=== PATIENT | male | born 1995 | race Caucasian/White ===

== ENCOUNTER → 2019-06-13 | Outpatient (CLI) | payer OTHER, MEDICAID ==
[~2019-06-13] MED LIST: CLOZ100T14 PO; FLUO-201 PO; LAMOT150PT GT; LEVO25TA61 PO; LITC450 PO; LUR80PT PO; METH36 PO; METH54TA12 PO; OLAN5TAB25 PO; SERT-1 PO
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
== END ==
LOC: RAD 16:21
PROVIDERS: ATTEND Pediatrics Adolescent Medicine
DX: M25.531 Pain in right wrist (principal)